=== PATIENT | female | born 1995 | race Caucasian/White ===

== ENCOUNTER → 2024-06-23 | Outpatient (CLI) | payer BC, MEDICAID, SELFPAY ==
[2024-06-23 14:40] LABS: Collection Type, Urine Clean Catch
[2024-06-23 14:57] LABS: Basophils % (Auto) 0 % (0-2.5); Eosinophils # (Auto) 0.2 Thou/mm3 (0.0-0.5); Eosinophils % (Auto) 2 % (0-10); Hematocrit 44.9 % (36.0-46.0); Hemoglobin 15.3 g/dL (12.0-16.0); Immature Granulocytes % (Auto) 0 % (0-0); Immature Granulocytes Auto 0.01 Thou/mm3 (0.00-0.00); Lymphocytes # (Auto) 3.4 Thou/mm3 (1.0-4.8); Lymphocytes % (Auto) 38 % (10-50); Mean Corpuscular HGB Conc 34.1 g/dl (31.0-37.0); Mean Corpuscular Hemoglobin 28.9 pg (25.0-35.0); Mean Corpuscular Volume 85 fL (80-100); Monocytes # (Auto) 0.5 Thou/mm3 (0.0-0.8); Monocytes % (Auto) 5 % (0-12); Neutrophils % (Auto) 55 % (37-80); Nucleated Red Blood Cell % 0 /100 WBC (0); Platelet Count 442 Thou/mm3 (140-440); RDW Standard Deviation 37.6 fL (36.4-46.3); White Blood Count 9.1 Thou/mm3 (3.6-11.0)
[2024-06-23 15:05] LABS: Glucose Estimated Average 91 mg/dL (80-131); Hemoglobin A1C 4.8 % Hgb (4.8-6.0)
[2024-06-23 15:09] LABS: Alanine Aminotransferase 42 U/L (10-49); Albumin, Serum 4.6 gm/dL (3.5-5.0); Albumin/Globulin Ratio 1.6 (1.2-2.2); Alkaline Phosphatase 68 U/L (46-116); Anion Gap 11 (7-16); Aspartate Amino Transferase 19 U/L (0-34); BUN/Creatinine Ratio 18 Ratio (12-20); Bilirubin,Total 0.7 mg/dL (0.3-1.2); Blood Urea Nitrogen 11 mg/dL (9-23); Calcium 9.4 mg/dL (8.3-10.6); Calcium (Corrected) 9.4 mg/dL (8.5-10.1); Carbon Dioxide 28.2 mMol/L (20.0-31.0); Cardiac Risk Estimate 3.8 RATIO (3.7-5.6); Chloride 101 mMol/L (98-107); Cholesterol 200 mg/dL (132-200); Creatinine (Component) 0.6 mg/dL (0.6-1.3); Globulin 2.9 gm/dL (2.3-3.5); Glucose 82 mg/dL (74-106); HDL Cholesterol 52 mg/dL (40-60); LDL Cholesterol,Calculated 122 mg/dL (0-130); Osmolality,Calculated 277 (275-295); Potassium 3.6 mMol/L (3.4-5.1); Sodium 140 mMol/L (136-145); Thyroid Stimulating Hormone 2.72 uIU/mL (0.55-4.78); Total Protein 7.5 gm/dL (5.7-8.2); Triglycerides 128 mg/dL (30-150); Uric Acid 5.9 mg/dL (3.1-7.8); eGFR > 60 See Note
[2024-06-23 15:10] LABS: Vitamin B12 620 pg/mL (211-911); Vitamin D 25 Hydroxy Total 75.5 ng/mL (7.3-40.2)
[2024-06-23 15:27] LABS: Bacteria,Urine 1+; Bilirubin,Urine Negative (Negative); Blood,Urine Negative (Negative); Clarity,Urine Turbid (Clear/Hazy); Color,Urine Yellow (Lt Yel-Yel); Glucose, Urine Negative (Negative); Ketones,Urine Negative (Negative); Leukocyte Esterase,Urine Positive (Negative); Nitrite,Urine Negative (Negative); Protein,Urine Trace (Neg - Trace); RBC,Urine 5 /hpf (0-3); Specific Gravity,Urine 1.018 (1.001-1.035); Squamous Epithelial Cell,Urine 7 /hpf (0-5); Urobilinogen,Urine Negative mg/dL (0.0-1.0); WBC,Urine 3 /hpf (0-5)
== END | disposition home or self-care (01) ==
LOC: COPL 14:02
PROVIDERS: PCP Internal Medicine; Referring Provider Internal Medicine; Visit Provider Internal Medicine
DX: Z00.00 Encounter for general adult medical examination without abnormal findings (principal)
CPT/HCPCS: 36415; 80053; 80061; 81001; 82306; 82607; 83036; 84443; 84550; 85025

== ENCOUNTER → 2024-11-11 | Outpatient (CLI) | payer BC, MEDICAID, SELFPAY ==
--- NOTE | 2024-11-11 | XR_ITS ---
Examination: Retroperitoneal ultrasound, complete Technique: Multiple high resolution grayscale images of the retroperitoneum obtained, including kidneys and bladder. Exam date and time:November 11, 2024 1117 hours INDICATIONS: Left flank pain one year, severe the last 2 months FINDINGS: Right kidney 13.0 cm renal cortex 1.1 cm Left kidney 14.1 cm cortex 1.9 cm Moderate renal parenchymal scar formation No hydronephrosis Bladder prevoid volume 335 cc postvoid volume 0 cc No bladder mass or bladder calculi Impression impression: Moderate bilateral renal parenchymal scar formation No hydronephrosis or renal calculi
== END | disposition home or self-care (01) ==
PROVIDERS: PCP Internal Medicine; Referring Provider Internal Medicine; Visit Provider Internal Medicine
DX: N28.89 Other specified disorders of kidney and ureter (principal); M54.50 Low back pain, unspecified
CPT/HCPCS: 76770

== ENCOUNTER → 2025-01-12 | Outpatient (CLI) | payer BC, MEDICAID, SELFPAY ==
--- NOTE | 2025-01-12 09:02 | XR_ITS ---
Examination: Abdomen sonogram, complete Date and time of exam: January 12, 2025 0910 hours INDICATIONS: Epigastric pain with nausea vomiting beginning 8 months ago. Technique: Multiple real-time grayscale transabdominal sonographic images of the abdomen have been obtained. Findings: Gallbladder sludge Negative for gallstones Common bile duct normal 0.3 cm Pancreatic head 3.4 cm Aorta not enlarged. Liver 16.1 cm fatty infiltration no focal liver lesions Normal hepatopedal portal venous flow Patent IVC Right kidney 12.4 cm cortex 1.4 cm Left kidney 12.3 cm cortex 2.1 cm Moderate renal parenchymal scar formation Spleen 11.5 cm IMPRESSION: Gallbladder sludge, negative for cholelithiasis, negative for cholecystitis Fatty infiltration throughout the liver Moderate renal parenchymal scar formation
--- NOTE | 2025-01-12 09:06 | XR_ITS ---
Examination: Thoracic spine 3 views TECHNIQUE: AP lateral coned lateral upper dorsal spine 3 views Date and time: January 12, 2025 0944 hours Comparison June 25, 2023 INDICATIONS: Scoliosis, upper back pain several years. FINDINGS: Mild osteopenia. Upper thoracic levoscoliosis 17 degrees Thoracolumbar dextroscoliosis 38 degrees No vertebral body fracture Mild diffuse thoracic disc narrowing IMPRESSION: Prominent scoliosis as above
--- NOTE | 2025-01-12 09:06 | XR_ITS ---
Examination: Lumbar spine, 5 views Technique: Lumbar spine AP, lateral, coned lateral lower lumbar spine, bilateral obliques 5 views Exam date and time: January 12, 2025 0909 hours INDICATIONS: History lumbar scoliosis June 25, 2023 FINDINGS: Lumbar levoscoliosis 32 degrees Mild osteopenia Mild diffuse facet arthropathy Grade 1 anterolisthesis L5 on S1 Diffuse lumbar disc narrowing, moderate at the L5-S1 level IMPRESSION: Lumbar levoscoliosis 32 degrees Diffuse lumbar degenerative disc disease, moderate at L5-S1
== END | disposition home or self-care (01) ==
PROVIDERS: PCP Internal Medicine; Referring Provider Internal Medicine; Visit Provider Internal Medicine
DX: M41.84 Other forms of scoliosis, thoracic region (principal); M41.85 Other forms of scoliosis, thoracolumbar region; M41.86 Other forms of scoliosis, lumbar region; M51.360 Other intervertebral disc degeneration, lumbar region with discogenic back pain only; M51.370 Other intervertebral disc degeneration, lumbosacral region with discogenic back pain only; K76.0 Fatty (change of) liver, not elsewhere classified; N28.89 Other specified disorders of kidney and ureter; K82.8 Other specified diseases of gallbladder
CPT/HCPCS: 72072; 72110; 76700

== ENCOUNTER → 2025-01-29 | Outpatient (CLI) | payer BC, MEDICAID, SELFPAY ==
--- NOTE | 2025-01-29 09:55 | XR_ITS ---
Examination: Ultrasound soft tissue neck Technique: Grayscale sonographic images soft tissue neck Date and time: January 29, 2025, 1011 hrs. Indications: Palpable lump right neck note is beginning 6 years ago. Findings: Soft tissue right neck lymph nodes 10 x 4 mm, 10 x 6 mm, 26 x 10 mm At the area concern mass in the thyroid vascular 16 x 14 x 13 mm upper right thyroid Impression: Cervical lymphadenopathy, consider CT soft tissue neck without contrast follow-up Soft tissue mass right thyroid, recommend dedicated thyroid sonography follow-up
== END | disposition home or self-care (01) ==
LOC: CDIM 09:44
PROVIDERS: PCP Internal Medicine; Referring Provider Internal Medicine; Visit Provider Internal Medicine
DX: R59.0 Localized enlarged lymph nodes (principal); R22.1 Localized swelling, mass and lump, neck
CPT/HCPCS: 76536

== ENCOUNTER → 2025-02-03 | Outpatient (CLI) | payer BC, MEDICAID, SELFPAY ==
--- NOTE | 2025-02-03 08:13 | XR_ITS ---
Examination: Thyroid sonography complete TECHNIQUE: Grayscale sonographic images thyroid lobes INDICATIONS: Ultrasound soft tissue neck vascular right thyroid nodule 16 mm January 29, 2025 Date and time: February 03, 2025 0821 hours FINDINGS: Right thyroid 6.0 cm Upper pole nodules 19 x 15 mm, 8 x 9 mm Midpole nodule 11 x 10 mm. Lower pole nodule 11 x 8 mm Left thyroid 4.6 cm no thyroid nodules IMPRESSION: Multiple right thyroid nodules, consider ultrasound-guided fine-needle laceration of the largest vascular nodule upper right thyroid
== END | disposition home or self-care (01) ==
LOC: CCTX 07:50 → CDIM 08:01
PROVIDERS: PCP Internal Medicine; Referring Provider Internal Medicine; Visit Provider Internal Medicine
DX: E04.2 Nontoxic multinodular goiter (principal)
CPT/HCPCS: 76536

== ENCOUNTER → 2025-02-04 | Outpatient (CLI) | payer BC, MEDICAID, SELFPAY ==
[2025-02-04 16:23] LABS: HCG Qualitative,Urine Negative
== END | disposition home or self-care (01) ==
PROVIDERS: Referring Provider Internal Medicine; Visit Provider Internal Medicine
DX: R59.0 Localized enlarged lymph nodes (principal)
CPT/HCPCS: 81025

== ENCOUNTER → 2025-02-05 | Outpatient (CLI) | payer BC, MEDICAID, SELFPAY ==
--- NOTE | 2025-02-05 07:30 | XR_ITS ---
Examination: CT soft tissue neck, without intravenous contrast. 2-D coronal reconstructions. 2-D sagittal reconstructions. Date and time of exam :February 05, 2025 0750 hours INDICATIONS: Difficulty swallowing liquids and solids 2 years. CTDI: vol (mGy):21.2 DLP: (mGycm):648. Technique: 1.25 mm axial sections of the neck of the obtained. Coronal and sagittal reconstructions have been obtained. Low dose protocols were performed. One or more of the following dose reduction techniques were used; automated exposure control, adjustment of the mA and/or KV according to patient size, use of iterative reconstruction technique. Findings: The optic globes are intact Symmetrical nasopharynx oropharynx Numerous bilateral carotid triangle lymph nodes, the largest on the right side 9 mm on the left side 9 mm Numerous posterior cervical lymph nodes Symmetrical submandibular glands. The larynx appears normal Thyroid lobes are poorly visualized Normal epiglottis. No prevertebral soft tissue prominence Lung apices clear IMPRESSION: Indeterminate cervical lymphadenopathy Suggest 3 month follow-up ultrasound soft tissue neck Given the patient's presentation, consider standard fluoroscopically guided esophagram follow-up
== END | disposition home or self-care (01) ==
PROVIDERS: PCP Internal Medicine; Referring Provider Internal Medicine; Visit Provider Internal Medicine
DX: R59.0 Localized enlarged lymph nodes (principal)
CPT/HCPCS: 70490

== ENCOUNTER → 2025-03-19 | Outpatient (CLI) | payer BC, MEDICAID, SELFPAY ==
--- NOTE | 2025-03-19 09:00 | XR_ITS ---
EXAM: Ultrasound-guided thyroid biopsy INDICATION: Right thyroid nodule. DATE: 03/19/2025, 10:24 a.m. PROCEDURE: After discussion of risks and benefits informed consent was obtained. Patient was placed supine on the exam table in the ultrasound weight. Preliminary ultrasound evaluation demonstrated a heterogeneous right thyroid nodule. This was targeted for fine needle aspiration. The overlying skin was cleaned and draped in normal sterile surgical fashion. 10 cc of 1% lidocaine was used for local anesthesia. Using ultrasound guidance multiple 25-gauge needles were sequentially advanced into the targeted nodule under direct ultrasound visualization. Samples were placed in solution and sent to the lab for analysis. Needle was withdrawn. Hemostasis was achieved. The access site was covered with a sterile dressing. There were no immediate complications. IMPRESSION: Successful ultrasound guided biopsy of right thyroid nodule as above.
[2025-03-19 09:46] LABS: Basophils # (Auto) 0.1 Thou/mm3 (0.0-0.2); Basophils % (Auto) 1 % (0-2.5); Eosinophils # (Auto) 0.1 Thou/mm3 (0.0-0.5); Eosinophils % (Auto) 1 % (0-10); Hematocrit 43.2 % (36.0-46.0); Hemoglobin 15.1 g/dL (12.0-16.0); Immature Granulocytes Auto 0.02 Thou/mm3 (0.00-0.00); Lymphocytes # (Auto) 2.6 Thou/mm3 (1.0-4.8); Lymphocytes % (Auto) 32 % (10-50); Mean Corpuscular HGB Conc 35.0 g/dl (31.0-37.0); Mean Corpuscular Hemoglobin 29.5 pg (25.0-35.0); Mean Corpuscular Volume 85 fL (80-100); Monocytes # (Auto) 0.7 Thou/mm3 (0.0-0.8); Monocytes % (Auto) 8 % (0-12); Neutrophils # (Auto) 4.9 Thou/mm3 (1.8-7.7); Neutrophils % (Auto) 58 % (37-80); Nucleated Red Blood Cell # 0.00 Thou/mm3 (0.00-0.00); Nucleated Red Blood Cell % 0 /100 WBC (0); Platelet Count 392 Thou/mm3 (140-440); RDW Standard Deviation 36.6 fL (36.4-46.3); Red Blood Count 5.11 Miln/mm3 (4.00-5.20); White Blood Count 8.4 Thou/mm3 (3.6-11.0)
[2025-03-19 09:55] LABS: INR 1.0 (0.9-1.3); Partial Thromboplastin Time 28.2 Seconds (22.0-36.0); Prothrombin Time 10.9 Seconds (9.0-12.2)
[2025-03-19 10:01] LABS: HCG,Qualitative Serum Negative
== END | disposition home or self-care (01) ==
LOC: SDIM 08:38
PROVIDERS: PCP Internal Medicine; Referring Provider Surgery; Visit Provider Radiology Diagnostic Radiology
DX: E04.1 Nontoxic single thyroid nodule (principal); Z01.812 Encounter for preprocedural laboratory examination
CPT/HCPCS: 10005; 36415; 84703; 85025; 85610; 85730

== ENCOUNTER 2025-04-07 10:30 | Day surgery (SDC) | payer BC, MEDICAID, SELFPAY ==
[2025-04-06 07:44] VITALS: BMI 47.0
--- NOTE | 2025-04-06 07:55 | EKG_ITS ---
[facility] Test Date: 2025-04-06 Pat Name: REJI HIGH Department: Room: - Gender: Female [employer] Se[employer] Joiner: RAJENDRA : 1995 Requested By: Saul Meyers Order Number: [id number] Reading MD: Saul Meyers Measurements Intervals [place] Rate: 79 P: 48 MT: 145 QRS: 44 QRSD: 110 T: 45 QT: 381 QTc: 437 Interpretive Statements SINUS RHYTHM No previous ECG available for comparison /store/S0/[id number].pdf
[2025-04-06 08:47] LABS: Basophils # (Auto) 0.0 Thou/mm3 (0.0-0.2); Basophils % (Auto) 0 % (0-2.5); Eosinophils # (Auto) 0.3 Thou/mm3 (0.0-0.5); Eosinophils % (Auto) 3 % (0-10); Hematocrit 43.3 % (36.0-46.0); Hemoglobin 14.9 g/dL (12.0-16.0); Immature Granulocytes Auto 0.01 Thou/mm3 (0.00-0.00); Lymphocytes # (Auto) 2.6 Thou/mm3 (1.0-4.8); Lymphocytes % (Auto) 34 % (10-50); Mean Corpuscular HGB Conc 34.4 g/dl (31.0-37.0); Mean Corpuscular Hemoglobin 29.0 pg (25.0-35.0); Mean Corpuscular Volume 84 fL (80-100); Monocytes # (Auto) 0.6 Thou/mm3 (0.0-0.8); Monocytes % (Auto) 8 % (0-12); Neutrophils # (Auto) 4.2 Thou/mm3 (1.8-7.7); Neutrophils % (Auto) 55 % (37-80); Nucleated Red Blood Cell # 0.00 Thou/mm3 (0.00-0.00); Nucleated Red Blood Cell % 0 /100 WBC (0); Platelet Count 398 Thou/mm3 (140-440); RDW Standard Deviation 35.9 fL (36.4-46.3); Red Blood Count 5.14 Miln/mm3 (4.00-5.20); White Blood Count 7.7 Thou/mm3 (3.6-11.0)
[2025-04-06 08:55] LABS: HCG,Qualitative Serum Negative
[2025-04-06 08:58] LABS: Alanine Aminotransferase 47 U/L (10-49); Albumin, Serum 4.9 gm/dL (3.5-5.0); Albumin/Globulin Ratio 2.0 (1.2-2.2); Alkaline Phosphatase 61 U/L (46-116); Anion Gap 10 (7-16); Aspartate Amino Transferase 31 U/L (0-34); BUN/Creatinine Ratio 15 Ratio (12-20); Bilirubin,Total 0.6 mg/dL (0.3-1.2); Blood Urea Nitrogen 9 mg/dL (9-23); Calcium 9.8 mg/dL (8.3-10.6); Calcium (Corrected) 9.8 mg/dL (8.5-10.1); Carbon Dioxide 28.2 mMol/L (20.0-31.0); Chloride 103 mMol/L (98-107); Creatinine (Component) 0.6 mg/dL (0.6-1.3); Estimated Creatinine Clearance 206.5 mL/min (>60); Globulin 2.5 gm/dL (2.3-3.5); Glucose 102 mg/dL (74-106); Osmolality,Calculated 279 (275-295); Potassium 3.2 mMol/L (3.4-5.1); Sodium 141 mMol/L (136-145); Total Protein 7.4 gm/dL (5.7-8.2); eGFR > 60 See Note
[2025-04-07] VITALS (10 sets, daily range): BP systolic 116–136; BP diastolic 77–98; PULSE 62–93; RESP 13–19; TEMP 36.5–37.1; O2SAT 95–100; BMI 46.7
--- NOTE | 2025-04-07 12:47 | ESOP_ITS ---
Date of Procedure 04/07/25 Pre Op Diagnosis Right thyroid nodules Post Op Diagnosis Right thyroid nodules Procedure Right thyroid lobectomy Findings Multiple hard nodules over the right lobe of thyroid. 2 slightly enlarged central lymph nodes, removed. Procedure Description Patient brought to the operating room in supine position. After administration of general endotracheal anesthesia, patient's neck was extended and prepped and draped in standard surgical manner. An approximately 4 cm semicircular incision was made approximately 2 fingerbreadths above the sternal notch. Dissection was carried subcutaneous tissue and platysma was divided. Superior and inferior subplatysmal plane were developed. Median raphae was identified and divided. The strap muscle on the right side was retracted laterally and the areolar tissue between the strap muscle and the thyroid tissues were divided. There were some inflammatory reaction from previous biopsy. The median thyroid vein was identified and ligated. The superior pole vessels were mobilized and divided with 0 silk tie. The inferior vessels were then individually identified and ligated. The recurrent laryngeal nerve on the right side was identified and kept away from dissection proceeded all times. I was able to identify the superior parathyroid gland and preserved it, I was unable to clearly identify the inferior parathyroid gland. Once the vessels were ligated the thyroid was from the anterior surface of the trachea by dividing the ligament of Gerardo. A clamp was placed just to the left of the midline on the thyroid tissue and the right lobe of thyroid was removed. The right lobe was marked with sutures to orient the pathologist. 0 silk suture was used and placed around the clamp and the clamp was released. The area was copiously thoroughly washed and irrigated, all the fluids were suctioned in the section fluids and clear. Hemostasis was adequate and satisfactory. Topical hemostatic agent snow Surgicel placed on the right side of the neck to further secure hemostasis. The left lobe was palpated, no obvious nodules or any lesions noted. Median raphae was then closed with running 2-0 Vicryl. Platysma reapproximated with interrupted sutures using 3-0 Vicryl, and the incision was closed with 4-0 Monocryl subcuticular fashion. Instruments, needle and sponge counts were reported to be correct ?2. Patient tolerated procedure well. She was extubated, breathing spontaneously and without difficulty and was transferred to postanesthesia care in stable condition. Anesthesia GETA and local Pathology / specimen Other (Right thyroid lobe, 2 central lymph nodes) Estimated Blood Loss 25 Condition Stable Disposition PACU Surgeon Willa Davis MD Surgical Staff Operation Date: 04/07/25 13:00 Case Staff TRANSPORTATION MAINTENANCE WORKER: Guy Stone RN First Assistant: Merlene Monzon
--- NOTE | 2025-04-07 13:17 | SUR.PHASEI ---
1317 patient arrived to recovery resting comfortably in [facility], on oxygen 8L via oxy mask, breathing unlabored, vital signs stable, denies pain and nausea, dressing intact to neck; dermabond, gauze, medipore tape, no bleeding noted, report recieved from Peter QUINONEZ and Adrienne AMAYA
[2025-04-07] MEDS: HYDROmorphone INJ 2 MG/ML VIAL 0.4 MG IVP (13:42)
--- NOTE | 2025-04-07 15:05 | SUR.PHASEII ---
1505 Patient meets discharge criteria from recovery, awake and alert, breathing unlabored, vital signs stable, denies pain and nausea, eating ice chips; tolerating well, dressing intact; no bleeding noted, assisted with dressing into her clothing by her , discharge instructions given to patient and patients mother, mother signed discharge instructions. Patient given all her belongings prior to discharge, transported via wheelchair and left in a private vehicle.
== END 2025-04-07 15:05 | disposition home or self-care (01) ==
PROVIDERS: Anesthesiology; PCP Internal Medicine; Referring Provider Surgery; Visit Provider Surgery
PROC: (CPT 60220; principal; 2025-04-07 12:45)
DX: E04.2 Nontoxic multinodular goiter (principal); Z01.810 Encounter for preprocedural cardiovascular examination; I10 Essential (primary) hypertension; E28.2 Polycystic ovarian syndrome; Z79.899 Other long term (current) drug therapy
CPT/HCPCS: 60220; 36415; 80048; 80053; 84703; 85025; 93005; A4649; J0131; J0690; J1171; J2250; J2704; J3010; J3490

== ENCOUNTER 2025-04-21 07:38 | Outpatient (RCR) | payer BC, MEDICAID, SELFPAY ==
--- NOTE | 2025-04-21 09:06 | CTCCONSULT_ITS ---
[facility] [address] [place], [place] [address] Consultation Note Date: 04/21/2025 MR#: [id number] Name: REJI HIGH : 1995 Dx: [id number] Malignant neoplasm of thyroid gland Attending physician. Naya Uribe MD Referring physician. Willa Davis MD Reason for consultation. Patient with stage I pT1b pN0 papillary thyroid carcinoma status post right lobe lobectomy History of Present Illness: Patient is a 29-year-old lady with palpable mass of long duration in right neck and underwent ultrasound 01/29/2025 revealing thyroid vascular 16 x 14 x [address] of the neck 02/05/2025 revealed indeterminate cervical lymphadenopathy with numerous bilateral carotid triangle lymph nodes bilaterally and posterior cervical nodes of unknown significance. They all seemed subcentimeter in size. Following FNA revealing atypia of undetermined significance [place] 3, underwent right lobe lobectomy and lymph node central neck excision performed by Dr Davis on 04/07/2025. This revealed papillary thyroid carcinoma tumor size 1.1 x 1 x 1 cm history type follicular variant encapsulated well-demarcated with tumor capsular invasion. Margins angioinvasion lymphatic invasion perineural invasion extrathyroidal extension were not identified. 2 lymph nodes submitted negative for carcinoma. Patient not referred to the cancer treatment center. Past medical History: High blood pressure tonsillitis Meds. Carvedilol medroxyprogesterone chlorthalidone nifedipine sertraline pantoprazole Allergies none to meds Family history. Cancer heart disease high blood pressure maternal grandfather liver cancer Social History: Patient works at [employer]. with 1 child engages in vaping smoking denies alcohol use of illegal drugs Review of Systems: Has experienced some depression and concern about recent diagnosis. Physical Exam: General: Obese lady in no acute distress HEENT: Well-healed scar low neck no neck nodes felt CV: Chest clear to auscultation heart regular rate and rhythm ABD: Soft no organomegaly tenderness EXT: No cyanosis clubbing or edema Assessment: 1.Patient with stage I T1bp N0 right thyroid papillary thyroid carcinoma. Status post right lobe lobectomy and central neck lymph node dissection, 04/07/2025. 2. There are generally favorable factors noted on pathology including having negative margins with no angioinvasion lymphatic invasion perineural invasion or extrathyroidal extension. 3. Pt is likely already cured with the surgery performed, no need for additional surgery or radioiodine. 4. Will check thyroid functions, tumor markers including thyroglobulin and ultrasound of neck in a few months. making sure that she remains euthyroid and with no elevation of thyroglobulin. 5. I will see her back in 3 months time. 6. Thank you very much for allowing me to evaluate this patient. Cc: Jeff Davis MD Electronically signed by: Santiago Sheth MD, DABR 04/21/2025 9:04 AM
== END 2025-05-03 23:59 | disposition home or self-care (01) ==
LOC: SCTC 07:38
PROVIDERS: PCP Internal Medicine; Referring Provider Internal Medicine; Visit Provider Radiology Therapeutic Radiology
DX: C73 Malignant neoplasm of thyroid gland (principal); E89.0 Postprocedural hypothyroidism
CPT/HCPCS: 99213; G0463

== ENCOUNTER → 2025-06-03 | Outpatient (CLI) | payer BC, MEDICAID, SELFPAY ==
[2025-06-03 08:19] LABS: Free T4 (Free Thyroxine) 0.91 ng/dL (0.89-1.76); Thyroid Stimulating Hormone 16.08 uIU/mL (0.55-4.78)
[2025-06-06 13:49] LABS: Thyroglobulin Antibodies 23 IU/mL (< OR = 1)
[2025-06-08 07:33] LABS: Thyroglobulin <0.1 ng/mL
== END | disposition home or self-care (01) ==
LOC: SCTO 07:06
PROVIDERS: PCP Internal Medicine; Referring Provider Surgery; Visit Provider Radiology Therapeutic Radiology
DX: C73 Malignant neoplasm of thyroid gland (principal); E04.1 Nontoxic single thyroid nodule
CPT/HCPCS: 36415; 84432; 84439; 84443; 86800